=== PATIENT | male | born 1965 | race Caucasian/White ===

== ENCOUNTER 2016-11-22 17:14 | Emergency (ER) | payer OTHER ==
[~2016-11-22] VITALS: Ht 177.8 cm; Wt 99.8 kg
[~2016-11-22 17:14] MED LIST: ACETAMINOPHEN325 MG PO; ACETAMINOPHEN500 M3 PO; ACETAMINOPHEN650 M3 PO; ALDACTONE PO; ALDACTONE25 MG PO; ALLERGY10 M2 PO; AMLODIPINE BESYL5 MG PO; APRESOLINE PO; ASPIR-TRIN325 MG PO; ASPIRIN PO; ASPIRIN325 M1 PO; ASPIRIN81 M2 PO; AUGMENTIN875 MG PO; BUMETANIDE2 M1 PO; BUMEX2 MG PO; BYSTOLIC5 MG PO; CATAPRES0.1 MG PO; CEFTRIAXON2 G/PIGGYB IV; CEFTRIAXONE2 GM IV; CLEOCIN HCL150 MG PO; CLONIDINE HCL0.1 MG PO; CLOPIDOGREL75 MG PO; COATED ASPIRIN325 M1 PO; COUMADIN1 MG PO; COUMADIN3 MG PO; COUMADIN4 MG PO; COUMADIN5 MG PO; COZAAR25 MG PO; DAKIN'S MODIF1000 ML EXT; FAMOTIDINE10 MG PO; FAMOTIDINE20 MG PO; FLOMAX0.4 M1 PO; GABAPENTIN300 MG PO; GLIPIZIDE10 MG PO; GLUCOPHAGE500 MG PO; GLUCOTROL XL10 MG PO; GLUCOTROL10 MG PO; HYDRALAZINE HCL25 MG PO; HYDROCODONE; HYDROCODONE-APA1 T42 PO; INVOKANA100 MG PO; KLOR-CON PO; LASIX PO; LASIX20 MG PO; LEVOFLOXACIN500 MG PO; LIPITOR20 MG PO; LISINOPRIL10 MG PO; LORTAB 5/500 TA1 TA1 PO; LOSARTAN POTASS50 MG; LOSARTAN POTASS50 MG PO; LOTREL 5/10 MG1 CAP PO; LOVENOX100 MG/ML SUBQ; MAGNESIUM400 MG PO; METFORMIN HCL1000 M1 PO; METFORMIN HCL500 M1 PO; METOPROLOL TAR25 MG PO; NORVASC PO; NORVASC10 MG PO; OMEPRAZOLE20 M2 PO; POTASSIUM CHLO10 ME1 PO; POTASSIUM CHLO10 MEQ PO; PRILOSEC PO; PRILOSEC20 M1 PO; PRILOSEC20 MG PO; SANTYL15 G1 TP; SIMVASTATIN40 MG PO; TYLOX1 CAP 5/50 PO; ULTRAM PO; WELCHOL625 MG PO; XARELTO20 MG PO; ZYRTEC PO; ZYRTEC10 M2 PO
[2016-11-29] MEDS ORDERED: CLOPIDOGREL75 MG PO (09:19)
[2016-11-29] MEDS ORDERED: METFORMIN PO (09:20)
[2016-11-29] MEDS ORDERED: ASPIRIN81 M2 PO (09:25)
[2016-11-29] MEDS ORDERED: OMEPRAZOLE20 M2 PO (09:25)
[2016-11-29] MEDS ORDERED: ALL DAY ALLERGY10 M3 PO (09:26)
[2016-11-29] MEDS ORDERED: LOSARTAN POTASS25 MG PO (09:26)
[2016-11-29] MEDS ORDERED: GLUCOTROL XL10 MG PO (09:27)
[2016-11-29] MEDS ORDERED: INVOKANA300 MG PO (09:27)
[2016-11-29] MEDS ORDERED: CATAPRES0.1 M1 PO (09:27)
[2016-11-29] MEDS ORDERED: HYDRALAZINE HCL25 MG PO (09:28)
[2016-11-29] MEDS ORDERED: AMLODIPINE BESY10 MG PO (09:28)
[2016-11-29] MEDS ORDERED: SIMVASTATIN40 MG PO (09:28)
[2016-11-29] MEDS ORDERED: CLINDAMYCIN HC300 MG PO (09:30)
== END 2016-11-22 18:21 | disposition home or self-care (01) ==
LOC: CED 17:14
DX: L72.0 Epidermal cyst (principal); F17.200 Nicotine dependence, unspecified, uncomplicated; I11.0 Hypertensive heart disease with heart failure; I50.9 Heart failure, unspecified; Z88.5 Allergy status to narcotic agent; Z88.8 Allergy status to other drugs, medicaments and biological substances; Z79.899 Other long term (current) drug therapy
CPT/HCPCS: 99282